=== PATIENT | male | born 2005 | race African-American/Black ===

== ENCOUNTER 2023-02-24 08:26 | Emergency (ER) | payer MEDICAID ==
[~2023-02-24] VITALS: Ht 175.3 cm; Wt 78.0 kg
[2023-02-24 08:30] VITALS: BP 117/58; PULSE 103; RESP 20; TEMP 98.2; O2SAT 100
[2023-02-24] MEDS ORDERED: ALBU18HF2 IH (09:20)
== END 2023-02-24 09:41 | disposition home or self-care (01) ==
LOC: ER 08:26
DX: B34.9 Viral infection, unspecified (principal)
CPT/HCPCS: 71045; 99283